=== PATIENT | female | born 1960 | race African-American/Black ===

== ENCOUNTER 2019-11-23 12:42 | Emergency (ER) | payer MEDICAID ==
[~2019-11-23] VITALS: Ht 165.1 cm; Wt 90.0 kg
[~2019-11-23 12:42] MED LIST: AMBIEN; OMEPRAZOLE
[2019-11-23] MEDS ORDERED: TRAMADOL 50MG TABLET PO ONE (13:15)
[2019-11-23] MEDS ORDERED: KETOROLAC 60MG/2ML VIAL IM ONE (13:15)
[2019-11-23 14:00] VITALS: BP 147/94
== END 2019-11-23 15:19 | disposition home or self-care (01) ==
LOC: ER 12:42
DX: M54.40 Lumbago with sciatica, unspecified side (principal); I10 Essential (primary) hypertension; J45.909 Unspecified asthma, uncomplicated; F14.10 Cocaine abuse, uncomplicated
CPT/HCPCS: 96372; 99283; J1885